=== PATIENT | male | born 1950 | race Caucasian/White ===

== ENCOUNTER 2021-04-16 15:05 | Emergency (ER) | payer MEDICARE ==
[2021-04-16 16:04] LABS: HEMOGLOBIN 17.2 gm/dl (14.0-17.5); RED BLOOD COUNT 5.21 M/UL (4.20-5.50); WHITE BLOOD COUNT 13.2 K/UL (4.5-11.0)
[2021-04-16 16:44] LABS: BUN/CREATININE RATIO 11 (0-10)
[2021-04-16] MEDS ORDERED: PREDNISONE20 MG PO (18:56)
[2021-04-16] MEDS ORDERED: VENTOLIN HFA 66.7 GM INH (19:00)
[2021-04-16] MEDS ORDERED: AEROCHAMBER1 EA XX (19:00)
== END 2021-04-16 19:25 | disposition home or self-care (01) ==
LOC: ER1 15:05
PROVIDERS: Family Medicine
DX: J43.9 Emphysema, unspecified (principal); R10.9 Unspecified abdominal pain; F17.200 Nicotine dependence, unspecified, uncomplicated; Z88.0 Allergy status to penicillin; Z88.5 Allergy status to narcotic agent
CPT/HCPCS: 71045; 80053; 81001; 82550; 82553; 83874; 83880; 84484; 85025; 93005; 94664; 96374; 99285; J2930

== ENCOUNTER → 2022-05-06 | Outpatient (CLI) | payer MEDICARE ==
[~2022-05-06] MED LIST: AEROCHAMBER1 EA XX; PREDNISONE20 MG PO; VENTOLIN HFA 66.7 GM INH
== END ==
LOC: HEART CORB 14:28
DX: I25.5 Ischemic cardiomyopathy (principal); I25.10 Atherosclerotic heart disease of native coronary artery without angina pectoris; I10 Essential (primary) hypertension; E78.5 Hyperlipidemia, unspecified; I07.1 Rheumatic tricuspid insufficiency; I27.20 Pulmonary hypertension, unspecified